=== PATIENT | female | born 1985 | race Caucasian/White ===

== ENCOUNTER 2022-02-19 22:36 | Emergency (ER) | payer SELFPAY ==
[~2022-02-19] VITALS: Ht 167.6 cm; Wt 54.4 kg
--- NOTE | 2022-02-19 22:56 | NUR ---
KRYSTAL 89 FROM HOME C/O ABD PAIN, N/V X2 WEEKS. PT A/OX4. TOLERATING R/A WELL WITH NO SOB. AMB WITH STEADY GAIT. CONNECTED PT TO POX AND MONITOR. AMB WITH STEADY GAIT. SAFETY MEASURES IN PLACE.
--- NOTE | 2022-02-19 22:58 | NUR ---
URINE COLLECTED AND SENT TO LAB
[2022-02-19] MEDS ORDERED: HYDROCODONE/APAP 5/325MG TABLET PO ONE (23:00)
--- NOTE | 2022-02-19 23:04 | NUR ---
Note aminah in EDM - 02/19/22 at 2304 by TARYN BIBRA 89 FROM HOME C/O ABD PAIN, N/V X2 WEEKS. PT A/OX4. TOLERATING R/A WELL WITH NO SOB. AMB WITH STEADY GAIT. CONNECTED PT TO POX AND MONITOR. AMB WITH STEADY GAIT. SAFETY MEASURES IN PLACE.
[2022-02-19] MEDS ORDERED: MAG HYDROX/AL HYDROX/SIMETH 30 ML UDC ONE (23:18)
[2022-02-19] MEDS ORDERED: ONDANSETRON HCL/PF 4 MG/2 ML VIAL ONE (23:18)
[2022-02-19] MEDS ORDERED: LIDOCAINE VISCOUS 2% UD 15 ML UDC ONE (23:18)
[2022-02-19] MEDS ORDERED: ONDANSETRON HCL/PF 4 MG/2 ML VIAL IVP ONE (23:30)
[2022-02-19] MEDS ORDERED: MAG HYDROX/AL HYDROX/SIMETH 30 ML UDC PO ONE (23:30)
[2022-02-19] MEDS ORDERED: LIDOCAINE VISCOUS 2% UD 15 ML UDC MM ONE (23:30)
[2022-02-19] MEDS ORDERED: IV NS 0.9% 1,000 ML BAG IV ONE (23:30)
[2022-02-19 23:49] LABS: BASOPHILS % (AUTO) 0.9 % (0.0-2.0); HEMATOCRIT 37 % (33-45); HEMOGLOBIN 12.6 g/dL (11.5-14.8); LYMPHOCYTES # (AUTO) 2.1 K/uL (0.8-4.8); LYMPHOCYTES % (AUTO) 41.2 % (20.0-44.0); MEAN CORPUSCULAR HGB CONC 34 g/dl (31.0-36.0); MEAN CORPUSCULAR VOLUME 92 fL (82-100); MONOCYTES # (AUTO) 0.2 K/uL (0.1-1.30); MONOCYTES % (AUTO) 4.5 % (2.0-12.0); NEUTROPHILS # (AUTO) 2.5 K/uL (1.8-8.9); NEUTROPHILS % (AUTO) 48.4 % (43.0-81.0); PLATELET COUNT (AUTO) 405 K/uL (150-450); RED BLOOD CELL COUNT(AUTO) 4.05 MIL/uL (4.0-5.2); WHITE BLOOD COUNT (AUTO) 5.2 K/uL (4.3-11.0)
[2022-02-19 23:59] LABS: CALCIUM, SERUM 8.9 mg/dL (8.5-10.1); CREATININE 0.8 mg/dL (0.6-1.3); POTASSIUM 3.8 mmol/L (3.5-5.1)
[2022-02-20 00:04] LABS: ALBUMIN 3.8 g/dL (3.4-5.0); BILIRUBIN,DIRECT 0.1 mg/dL (0.0-0.2); BILIRUBIN,TOTAL 0.2 mg/dL (0.2-1.0); TOTAL PROTEIN, SERUM 7.3 g/dL (6.4-8.2)
[2022-02-20 00:08] LABS: BILIRUBIN,URINE NEGATIVE (NEGATIVE); LEUKOCYTE ESTERASE ,URINE NEGATIVE (NEGATIVE); NITRITE, URINE NEGATIVE (NEGATIVE); PROTEIN,URINE NEGATIVE (NEGATIVE); UGLUCOSE NEGATIVE (NEGATIVE); UROBILINOGEN,URINE 0.2 EU/dL (0.2)
[2022-02-20 00:14] LABS: COLOR,URINE STRAW (YELLOW)
--- NOTE | 2022-02-20 00:21 | NUR ---
Note twanerick in EDM - 02/20/22 at 0022 by TARYN Patient does not wish to proceed with medical care recommended by Dr. BAUER. Patient given information related to possible complications, up to and including , which could occur as a result of leaving the hospital at this time. Patient verbalizes understanding of risks involved due to leaving against medical advice. Patient has signed AMA form. IV removed. Catheter intact and site benign. Pressure and 4x4 applied to site. No bleeding noted. PT ambulatory with a steady gait
--- NOTE | 2022-02-20 00:22 | NUR ---
Patient does not wish to proceed with medical care recommended by Dr. BAUER. Patient given information related to possible complications, up to and including , which could occur as a result of leaving the hospital at this time. Patient verbalizes understanding of risks involved due to leaving against medical advice. Patient has refused to signed AMA form. IV removed. Catheter intact and site benign. Pressure and 4x4 applied to site. No bleeding noted. PT ambulatory with a steady gait
[2022-02-20 01:24] VITALS: BP 111/67
== END 2022-02-20 00:22 | disposition left against medical advice (07) ==
LOC: ER 22:41
DX: F10.129 Alcohol abuse with intoxication, unspecified (principal); R10.2 Pelvic and perineal pain; R10.13 Epigastric pain; Z76.5 Malingerer [conscious simulation]; Y90.8 Blood alcohol level of 240 mg/100 ml or more
CPT/HCPCS: 99283; 96374; 96361; 85025; 80048; 83690; 80076; 81003; 36415; 80320; 80307; J2405; J7030; G0480